=== PATIENT | female | born 1955 | race Caucasian/White ===

== ENCOUNTER → 2017-12-30 | Outpatient (CLI) | payer BC ==
[~2017-12-30] MED LIST: CLIMARA1 EACH TD; Metrocream45 GM
[2018-01-03 12:51] LABS: HPV Genotype 16 Not Detected (NOTDET); HPV Genotype 18 Not Detected (NOTDET)
[2018-01-09 12:53] LABS: HPV High Risk Other Not Detected (NOTDET)
== END | disposition home or self-care (01) ==
LOC: OLS 15:17
PROVIDERS: Obstetrics & Gynecology Gynecology
DX: Z12.4 Encounter for screening for malignant neoplasm of cervix (principal)
CPT/HCPCS: 87624; G0123

== ENCOUNTER → 2018-01-05 | Outpatient (CLI) | payer BC | END | disposition home or self-care (01) | LOC: PLD 13:53 | DX: N84.0 Polyp of corpus uteri (principal); N95.0 Postmenopausal bleeding | CPT/HCPCS: 88305 ==

== ENCOUNTER → 2019-02-21 | Outpatient (CLI) | payer OTHER ==
[2019-02-22 15:06] LABS: HPV 16 Negative (Negative); HPV 18 Negative (Negative); HPV OTHER HR TYPES Negative (Negative)
== END | disposition home or self-care (01) ==
LOC: LAB 13:23 → LAB SHORT 13:23
PROVIDERS: Obstetrics & Gynecology Gynecology
DX: Z12.4 Encounter for screening for malignant neoplasm of cervix (principal)
CPT/HCPCS: 87624; G0123

== ENCOUNTER → 2022-03-15 | Outpatient (CLI) | payer MEDICARE | END | disposition home or self-care (01) | LOC: LAB SHORT 12:22 | DX: A49.9 Bacterial infection, unspecified (principal) | CPT/HCPCS: 87070; 87077; 87147; 87185; 87205 ==

== ENCOUNTER 2022-05-19 12:26 | Day surgery (SDC) | payer MEDICARE ==
[~2022-05-19] VITALS: Ht 172.7 cm; Wt 86.0 kg
[~2022-05-19 12:26] MED LIST changes: +HYDROCHLOROTH12.5 MG PO; +ROSU5 PO
--- NOTE | 2022-05-19 13:12 | NUR ---
05/19/22 1312 DAPHNE HERRERA THREE ATTEMPS AT IV. FIRST ATTEMPT BY MA IN RIGHT WRIST UNABLE TO ADVANCE. SECOND ATTEMPT BY MA IN RIGHT AC MISSED. THIRD ATTEMPT BY MA IN LEFT WRIST SUCCESSFUL.
== END 2022-05-19 14:04 | disposition home or self-care (01) ==
LOC: ORSCSDS 12:26
PROVIDERS: Internal Medicine Gastroenterology
PROC: 0DBK8ZX Excision of Ascending Colon, Via Natural or Artificial Opening Endoscopic, Diagnostic (ICD-10-PCS; principal; 2022-05-19 13:30)
DX: Z12.11 Encounter for screening for malignant neoplasm of colon (principal); Z86.010 Personal history of colon polyps; Z80.0 Family history of malignant neoplasm of digestive organs; D12.2 Benign neoplasm of ascending colon; Z79.899 Other long term (current) drug therapy
CPT/HCPCS: 88305; J0461; J2405; J2704; J7120

== ENCOUNTER 2025-07-23 06:50 | Day surgery (SDC) | payer OTHER ==
[~2025-07-23] VITALS: Ht 170.2 cm; Wt 88.6 kg
[2025-07-23] VITALS (10 sets, daily range): BP systolic 85–148; BP diastolic 53–82
[~2025-07-23 06:50] MED LIST changes: +HYDSUL200 PO; +LEVSOD25 PO; -Metrocream45 GM; +Metrocream45 GM TOP
[2025-07-23] MEDS ORDERED: CeFAZolin Sodium 2,000 MG in NS 100 ML IV SCH ×2 (07:35→17:00)
[2025-07-23] MEDS ORDERED: Ropivacaine 0.5% HCl/Pf 123.125 MG,EPINEPHrine HCL 0.25 MG,Ketorolac Tromethamine 15 MG... INFIL SCH (07:35)
[2025-07-23] MEDS ORDERED: Tranexamic Acid 100 ML IV SCH (07:35)
[2025-07-23] MEDS ORDERED: Chlorhexidine Mouth Care 15 ML UDC MT SCH (07:35)
[2025-07-23] MEDS ORDERED: HYDROmorphone HCl/Pf 1MG SYR IV PRN ×2 (07:50→10:05)
[2025-07-23] MEDS ORDERED: Magnesium Hydroxide Conc 10 ML UDC PO PRN (07:55)
[2025-07-23] MEDS ORDERED: FLU VACC TS2025(65UP)/MF59C/PF 45 MCG/0.5 ML SYRINGE IM SCH (08:10)
[2025-07-23] MEDS ORDERED: Ondansetron HCl 2 MG / ML 2ML Vial IV PRN ×2 (08:10→10:05)
[2025-07-23] MEDS ORDERED: Metoclopramide HCl 5MG / ML 2ML Vial IV PRN ×2 (08:10→10:00)
[2025-07-23] MEDS ORDERED: Misc. Topical TOP PRN (08:15)
--- NOTE | 2025-07-23 08:19 | NUR ---
Ambulatory in Day Surgery. History, Chart, Medications and Allergies reviewed before start of procedure. Patient confirms NPO status and agrees with scheduled surgery. Pre-Op teaching done. Pt verbalizes understanding. Pt belongings placed underneath gurney for safekeeping. Pt glasses taken to PACU for safekeeping.
[2025-07-23] MEDS ORDERED: Midazolam HCl 1MG / ML 2ML Vial ONE (08:55)
[2025-07-23] MEDS ORDERED: Ondansetron HCl 2 MG / ML 2ML Vial ONE (09:09)
[2025-07-23] MEDS ORDERED: Dexamethasone Sod Phos 10 MG/ML 1ML VIAL ONE (09:09)
[2025-07-23] MEDS ORDERED: Ketorolac Tromethamine 30mg Vial ONE ×2 (09:09→09:10)
[2025-07-23] MEDS ORDERED: Morphine Sulfate 4 MG/1 ML Injection IV PRN (10:00)
[2025-07-23] MEDS ORDERED: Albuterol 2.5 MG/3 ML VIAL INH PRN (10:00)
[2025-07-23] MEDS ORDERED: FentaNYL Citrate 50 MCG/ML 2 ML Injection IV PRN ×2 (10:00→10:05)
[2025-07-23] MEDS ORDERED: Phenylephrine HCl 100 MCG/ML-NS 10MLSYR (1MG/10ML) ONE (10:45)
[2025-07-23] MEDS ORDERED: ASPI81CH PO (11:29)
--- NOTE | 2025-07-23 11:30 | NUR ---
ARRIVAL TO SURGICAL FLOOR TO FLOOR VIA HOSP BED. S/P R TKA. VSS, HRR, LUNGS CLEAR. ABLE TO MAKE NEEDS KNOWN. STATES NO PAIN. ABLE TO WIGGLE TOES & FEET, BUT UNABLE TO MOVE LEGS DUE TO SPINAL. R KNEE w/TEFLA & TEGADERM, C/D/I. LESLY WRAP APPLIED. IVF INFUSING. CURRENTLY RESTING IN BED w/FAMILY AT BEDSIDE. SNACKS & DRINKS GIVEN. CALL LIGHT WITHIN REACH.
[2025-07-23] MEDS ORDERED: Ketorolac Tromethamine 15mg Vial IV SCH (12:00)
--- NOTE | 2025-07-23 16:18 | NUR ---
DISCHARGE NOTE NO ACUTE CHANGES SINCE [facility] RNs NOTE. S/P R TKA. VSS. PAIN MANAGED W/ PRESCRIBED THERAPY. TEFLA AND TEGADERM DX C/D/I. AMBULATING W/ SBA FWW GB. WORKED W/ PHYSICAL THERAPY - CLEARED TO SD HOME. VOIDING. TOLERATING PO INTAKE. IV REMOVED. WRITTEN AND VERBAL EDUCATION PROVIDED - PATIENT AND SPOUSE STATES UNDERSTANDING. PERSONAL BELONGINGS W/ PATIENTs SPOUSE. PATIENT TRANSFERRED TO PERSONAL VEHICLE VIA .
== END 2025-07-23 16:16 | disposition home or self-care (01) ==
LOC: ORSCMMR 06:50 → ORD 08:15 → ORSCMMR 08:15 → ORD 10:00 → SURS 11:24 → ORSCMMR 16:16
PROVIDERS: Orthopaedic Surgery
PROC: 0SRC0JA Replacement of Right Knee Joint with Synthetic Substitute, Uncemented, Open Approach (ICD-10-PCS; principal; 2025-07-23 08:15)
DX: M17.11 Unilateral primary osteoarthritis, right knee (principal); I10 Essential (primary) hypertension; Z79.899 Other long term (current) drug therapy; E03.9 Hypothyroidism, unspecified; E78.00 Pure hypercholesterolemia, unspecified
CPT/HCPCS: 73560-RT; 97110; 97116; 97162; 97530; A9270; C1713; C1776; J0166; J0690; J0735; J1100; J1885; J2250; J2371; J2405; J2704; J2795; J7120